=== PATIENT | female | born 1990 | race Caucasian/White ===

== ENCOUNTER 2017-01-06 14:57 | Emergency (ER) | payer OTHER ==
--- NOTE | 2017-01-06 15:32 | EDPHY ---
H & P Time Seen by Provider: 01/06/17 15:06 HPI/ROS: Chief complaint. Vomiting HPI. 26-year-old female had an IUD placed 2 weeks ago. She has had some low abdominal cramping since. She notes strong urine smell. Slight pinkish fluid seems to come from her vagina only with urination. She was in [place] for spring and return 2 days ago. Vomiting began the last 3 days of her trip. She has some periumbilical burning type pain for the last 2 days. No diarrhea. Last bowel movement was 2-3 days ago. No fever. ROS Constitutional. no fever/chills, no weakness Eyes. no problems with vision ENT. no sore throat, no nasal drainage Cardiovascular. no chest pain Respiratory. no shortness of breath, no cough Abdominal. Abdominal pain with nausea and vomiting . no problems urinating MS. no calf pain/swelling, no neck/back pain, no joint pain Skin. no rash Lymph. no swollen glands Neuro. no headache, no dizziness, no difficulty walking or with speech Past Medical/Surgical History: Healthy Social History: Single, nonsmoker, no alcohol Smoking Status: Never smoked Physical Exam: General Appearance: Alert well-developed female mild distress vital signs are stable Eyes: Pupils equal and round no pallor or injection. ENT, Mouth: Mucous membranes are moist. Respiratory: There are no retractions, lungs are clear to auscultation. Cardiovascular: Regular rate and rhythm. Gastrointestinal: Abdomen is soft and nontender, no masses, bowel sounds normal. No tenderness with palpation Neurological: Awake and alert, sensory and motor exams grossly normal. Skin: Warm and dry, no rashes. Musculoskeletal: Neck is supple nontender. Extremities symmetrical, full range of motion. Psychiatric: Patient is oriented X 3, there is no agitation. Constitutional: Initial Vital Signs Temperature (C) 36.6 C 01/06/17 15:01 Heart Rate 69 01/06/17 15:01 Respiratory Rate 16 01/06/17 15:01 Blood Pressure 99/50 L 01/06/17 15:01 O2 Sat (%) 97 01/06/17 15:01 O2 Delivery Mode Room Air Allergies/Adverse Reactions: No Known Allergies Allergy (Unverified 01/06/17 15:03) Home Medications: Medication Instructions Recorded Cephalexin [Keflex (*)] 500 mg PO TID #21 cap 01/06/17 Ondansetron Odt [Zofran Odt] 4 mg PO Q4PRN PRN #4 tab 01/06/17 Medical Decision Making - Diagnostics Imaging: Ultrasound reviewed by me and discussed with Dr. Perdomo shows an intrauterine measuring 6 weeks 2 days gestation. The gestational sac is immediately adjacent to the IUD. Procedures: IV normal saline with 1 L ED Course/Re-evaluation: Re-evaluation 6:00 p.m.. Patient and I discussed ultrasound findings, treatment plan as well as lab work evaluation and that she has a urinary tract infection. We discussed criteria for return importance of follow-up and further evaluation she expresses understanding and agreement I consulted and discussed the case with who recommends no attempts to remove the IUD as it is immediately adjacent to the gestational sac. They will remove it in the office using ultrasound Differential Diagnosis: I considered ectopic . with IUD. She also has urinary tract infection. I considered electrolyte abnormalities as well - Data Points Laboratory Results: Laboratory Results 01/06/17 15:15 01/06/17 15:15 01/06/17 01/06/17 01/06/17 15:55 15:52 15:40 WBC RBC Hgb Hct MCV MCH MCHC RDW Plt Count MPV Neut % (Auto) Lymph % (Auto) [place] % (Auto) Eos % (Auto) Baso % (Auto) Nucleat RBC Rel Count Absolute Neuts (auto) Absolute Lymphs (auto) Absolute Monos (auto) Absolute Eos (auto) Absolute Basos (auto) Absolute Nucleated RBC Immature Gran % Immature Gran # Sodium Potassium Chloride Carbon Dioxide Anion Gap BUN Creatinine Estimated GFR Glucose Calcium Lipase Beta HCG, Qual Beta HCG, Quant 01898.00 mIU/mL H mIU/mL (0-4.83) Urine Color YELLOW Urine Appearance HAZY Urine pH 5.0 (5.0-7.5) Ur Specific [place] 1.021 (1.002-1.030) Urine Protein NEGATIVE (NEGATIVE) Urine Ketones 2+ H (NEGATIVE) Urine Blood NEGATIVE (NEGATIVE) Urine Nitrate POSITIVE H (NEGATIVE) Urine Bilirubin NEGATIVE (NEGATIVE) Urine Urobilinogen NEGATIVE EU EU (0.2-1.0) Ur Leukocyte Esterase NEGATIVE (NEGATIVE) Urine RBC 1-3 /hpf /hpf (0-3) Urine WBC 10-15 /hpf H /hpf (0-3) Ur Epithelial Cells TRACE /lpf /lpf (NONE-1+) Urine Bacteria 1+ /hpf H /hpf (NONE SEEN) Ur Culture Indicated? INDICATED H (NI) Urine Glucose NEGATIVE (NEGATIVE) Patient ABO/Rh Pending 01/06/17 01/06/17 01/06/17 15:15 15:15 15:15 WBC 6.86 10^3/uL 10^3/uL (3.80-9.50) RBC 3.98 10^6/uL L 10^6/uL (4.18-5.33) Hgb 11.9 g/dL L g/dL (12.6-16.3) Hct 35.4 % L % (38.0-47.0) MCV 88.9 fL fL (81.5-99.8) MCH 29.9 pg pg (27.9-34.1) MCHC 33.6 g/dL g/dL (32.4-36.7) RDW 12.7 % % (11.5-15.2) Plt Count 342 10^3/uL 10^3/uL (150-400) MPV 9.8 fL fL (8.7-11.7) Neut % (Auto) 59.9 % % (39.3-74.2) Lymph % (Auto) 34.1 % % (15.0-45.0) [place] % (Auto) 4.8 % % (4.5-13.0) Eos % (Auto) 0.3 % L % (0.6-7.6) Baso % (Auto) 0.6 % % (0.3-1.7) Nucleat RBC Rel Count 0.0 % % (0.0-0.2) Absolute Neuts (auto) 4.11 10^3/uL 10^3/uL (1.70-6.50) Absolute Lymphs (auto) 2.34 10^3/uL 10^3/uL (1.00-3.00) Absolute Monos (auto) 0.33 10^3/uL 10^3/uL (0.30-0.80) Absolute Eos (auto) 0.02 10^3/uL L 10^3/uL (0.03-0.40) Absolute Basos (auto) 0.04 10^3/uL 10^3/uL (0.02-0.10) Absolute Nucleated RBC 0.00 10^3/uL 10^3/uL (0-0.01) Immature Gran % 0.3 % % (0.0-1.1) Immature Gran # 0.02 10^3/uL 10^3/uL (0.00-0.10) Sodium 132 mEq/L L mEq/L (134-144) Potassium 4.7 mEq/L mEq/L (3.5-5.2) Chloride 99 mEq/L mEq/L (97-110) Carbon Dioxide 18 mEq/l L mEq/l (22-31) Anion Gap 15 mEq/L mEq/L (8-16) BUN 10 mg/dL mg/dL (7-23) Creatinine 0.5 mg/dL L mg/dL (0.6-1.0) Estimated GFR > 60 Glucose 78 mg/dL mg/dL (70-100) Calcium 10.1 mg/dL mg/dL (8.5-10.4) Lipase 58.0 IU/L IU/L (23-300) Beta HCG, Qual POSITIVE Beta HCG, Quant Urine Color Urine Appearance Urine pH Ur Specific [place] Urine Protein Urine Ketones Urine Blood Urine Nitrate Urine Bilirubin Urine Urobilinogen Ur Leukocyte Esterase Urine RBC Urine WBC Ur Epithelial Cells Urine Bacteria Ur Culture Indicated? Urine Glucose Patient ABO/Rh Departure - Departure Disposition: Home, Routine, Self-Care Clinical Impression: First trimester Urinary tract infection Qualifiers: Urinary tract infection type: acute cystitis Hematuria presence: without hematuria Qualified Code(s): N30.00 - Acute cystitis without hematuria Condition: Good Instructions: Urinary Tract Infection in Women (ED) Additional Instructions: Drink plenty of fluids and stay hydrated. Zofran as needed for nausea. Cephalexin is antibiotic. Return for worsening pain, fever, vaginal bleeding. Call to arrange follow-up and further evaluation of the your IUD and Referrals: NONE *PRIMARY CARE P,. [Primary Care Provider] - As per Instructions Jossie Davila DO [Doctor of Osteopathy] - 2-3 days, call for appt. Prescriptions: Cephalexin [Keflex (*)] 500 mg PO TID #21 cap Ondansetron Odt [Zofran Odt] 4 mg PO Q4PRN PRN #4 tab PRN Reason: Nausea/Vomiting, Use 1st
[2017-01-06 15:39] LABS: % IMMATURE GRANULYOCYTES 0.3 % (0.0-1.1); ABSOLUTE IMMATURE GRANULOCYTES 0.02 10^3/uL (0.00-0.10); ADD DIFF? NO; ADD MORPH? NO; ADD SCAN? NO; ATYPICAL LYMPHOCYTE FLAG 10 (0-99); FRAGMENT RBC FLAG 0 (0-99); HEMATOCRIT 35.4 % (38.0-47.0); HEMOGLOBIN 11.9 g/dL (12.6-16.3); LEFT SHIFT FLG 0 (0-99); LIPEMIA HEMOLYSIS FLAG 80 (0-99); MEAN CELL HEMOGLOBIN 29.9 pg (27.9-34.1); MEAN CELL HEMOGLOBIN CONCENTR. 33.6 g/dL (32.4-36.7); MEAN CELL VOLUME 88.9 fL (81.5-99.8); MEAN PLATELET VOLUME 9.8 fL (8.7-11.7); PLATELET CLUMPS FLAG 10 (0-99); PLATELET COUNT 342 10^3/uL (150-400); RED BLOOD CELL COUNT 3.98 10^6/uL (4.18-5.33); RED CELL DISTRIBUTION WIDTH 12.7 % (11.5-15.2)
[2017-01-06 16:03] LABS: ANION GAP 15 mEq/L (8-16); CALCIUM 10.1 mg/dL (8.5-10.4); CARBON DIOXIDE 18 mEq/l (22-31); CHLORIDE 99 mEq/L (97-110); CREATININE 0.5 mg/dL (0.6-1.0); GLOMERULAR FILTRATION RATE > 60; GLUCOSE 78 mg/dL (70-100); POTASSIUM 4.7 mEq/L (3.5-5.2); SODIUM 132 mEq/L (134-144)
[2017-01-06 16:12] LABS: COLOR YELLOW; LEUKOCYTE ESTERASE,URINE NEGATIVE (NEGATIVE); NITRITE,URINE POSITIVE (NEGATIVE)
[2017-01-06 16:20] LABS: BACTERIA 1+ /hpf (NONE SEEN)
[2017-01-06 18:14] VITALS: O2SAT 97
[2017-01-06 18:26] VITALS: BP 97/73; PULSE 70; RESP 14; TEMP 99.1
== END 2017-01-06 18:25 | disposition home or self-care (01) ==
DX: O23.11 Infections of bladder in pregnancy, first trimester (principal); B96.29 Other Escherichia coli [E. coli] as the cause of diseases classified elsewhere; Z3A.01 Less than 8 weeks gestation of pregnancy

== ENCOUNTER 2017-01-11 10:23 | Emergency (ER) | payer OTHER ==
[2017-01-11 10:28] VITALS: RESP 16; TEMP 98.2
--- NOTE | 2017-01-11 10:32 | EDPHY ---
H & P Stated Complaint: nausea continues after uti, and infected iud removed t-4,on flagyl Time Seen by Provider: 01/11/17 10:32 - Personal History LMP (Females 10-55): Unknown Current Tetanus/Diphtheria Vaccine: Unsure Current Tetanus Diphtheria and Acellular Pertussis (TDAP): Unsure - Medical/Surgical History Hx Asthma: No Hx Chronic Respiratory Disease: No Hx Diabetes: No Hx Cardiac Disease: No Hx Renal Disease: No Hx Cirrhosis: No Hx Alcoholism: No Hx HIV/AIDS: No Hx Splenectomy or Spleen Trauma: No Other PMH: Denies - Social History Smoking Status: Never smoked Constitutional: Initial Vital Signs Temperature (C) 36.8 C 01/11/17 10:25 Heart Rate 85 01/11/17 10:25 Respiratory Rate 16 01/11/17 10:25 Blood Pressure 104/61 01/11/17 10:25 O2 Sat (%) 98 01/11/17 10:25 O2 Delivery Mode Room Air Allergies/Adverse Reactions: No Known Allergies Allergy (Unverified 01/06/17 15:03) Home Medications: Medication Instructions Recorded Cephalexin [Keflex (*)] 500 mg PO TID #21 cap 01/06/17 Metronidazole 01/11/17 Medical Decision Making ED Course/Re-evaluation: CHIEF COMPLAINT: Vaginal bleeding. HISTORY OF PRESENT ILLNESS: The patient is a 26-year-old female who presents after episodes of vaginal bleeding Friday and . This patient was in the emergency department last week for nausea and vomiting and found out she was 7 weeks . However, she had an IUD placed at some point in the early . She had this IUD removed on Friday. She bled Friday and . She denies fever, abdominal pain, other vaginal discharge. REVIEW OF SYSTEMS: A 10 point review of systems was performed and is negative with the exception of the elements mentioned in the history of present illness. PHYSICAL EXAM: HR, BP, O2 Sat, RR. Temp noted General Appearance: Alert, well hydrated, appropriate, and non-toxic appearing. Head: Atraumatic without scalp tenderness or obvious injury Eyes: Pupils equal, round, reactive to light and accommodation, EOMI, no trauma , no injection. Ears: Clear bilaterally, no perforation, normal landmarks Nose: Atraumatic, no rhinorrhea, clear. Throat: There is no erythema or exudates, no lesions, normal tonsils, mucus membranes moist. Neck: Supple, 2+ carotid upstroke, nontender, no lymphadenopathy. Respiratory: No retractions, no distress, no wheezes, and no accessory muscle use. Lungs are clear to auscultation bilaterally. Cardiovascular: Regular rate and rhythm, no murmurs, rubs, or gallops. Bilateral carotid, radial, dorsalis pedis, and posterior tibial pulses intact. Good capillary refill all extremities. Gastrointestinal: Abdomen is soft, nontender, non-distended, no masses, no rebound, no guarding, no peritoneal signs. Musculoskeletal: Normal active ROM of all extremities, atraumatic. Neurological: Alert, appropriate, and interactive. The patient has normal DTRs and non-focal cranial nerves, motor, sensory, and cerebellar exam. Skin: No rashes, good turgor, no nodules on palpation. Past medical history: Denies. Past surgical history: Denies. Family history: N/A. Social history: Here alone. DIAGNOSTICS/PROCEDURES/CRITICAL CARE TIME: I independently reviewed the patient's imaging studies on the PACS system. See Imaging section for radiologist reports. DIFFERENTIAL DIAGNOSIS: The differential diagnosis for the patient's vaginal bleeding included but was not limited to ectopic , menses, miscarriage, and dysfunctional uterine bleeding. MEDICAL DECISION MAKING: This is a 26-year-old female seen in the ED last week for nausea vomiting. She found out she was 7 weeks but had an IUD placed sometime during the . This IUD was removed 5 days ago. She had 2 days of bleeding after the removal. She has not had bleeding since. She denies vaginal discharge, abdominal pain, lightheadedness, or other complaints. Blood work and obstetrics ultrasound ordered. 1208: Ultrasound results conveyed to me by Dr. Mata, radiology. He reports that the baby is viable and has grown. There is slight subchorionic hemorrhage similar to last time. I have discussed these results with her. She is comfortable being discharged. - Data Points Laboratory Results: Laboratory Results 01/11/17 10:50 01/11/17 10:50 01/11/17 01/11/17 01/11/17 11:07 10:50 10:50 WBC 6.72 10^3/uL 10^3/uL (3.80-9.50) RBC 4.12 10^6/uL L 10^6/uL (4.18-5.33) Hgb 11.9 g/dL L g/dL (12.6-16.3) Hct 35.4 % L % (38.0-47.0) MCV 85.9 fL fL (81.5-99.8) MCH 28.9 pg pg (27.9-34.1) MCHC 33.6 g/dL g/dL (32.4-36.7) RDW 12.6 % % (11.5-15.2) Plt Count 333 10^3/uL 10^3/uL (150-400) MPV 9.6 fL fL (8.7-11.7) Neut % (Auto) 67.4 % % (39.3-74.2) Lymph % (Auto) 26.3 % % (15.0-45.0) [place] % (Auto) 5.2 % % (4.5-13.0) Eos % (Auto) 0.1 % L % (0.6-7.6) Baso % (Auto) 0.7 % % (0.3-1.7) Nucleat RBC Rel Count 0.0 % % (0.0-0.2) Absolute Neuts (auto) 4.52 10^3/uL 10^3/uL (1.70-6.50) Absolute Lymphs (auto) 1.77 10^3/uL 10^3/uL (1.00-3.00) Absolute Monos (auto) 0.35 10^3/uL 10^3/uL (0.30-0.80) Absolute Eos (auto) 0.01 10^3/uL L 10^3/uL (0.03-0.40) Absolute Basos (auto) 0.05 10^3/uL 10^3/uL (0.02-0.10) Absolute Nucleated RBC 0.00 10^3/uL 10^3/uL (0-0.01) Immature Gran % 0.3 % % (0.0-1.1) Immature Gran # 0.02 10^3/uL 10^3/uL (0.00-0.10) Sodium 137 mEq/L mEq/L (134-144) Potassium 3.6 mEq/L mEq/L (3.5-5.2) Chloride 102 mEq/L mEq/L (97-110) Carbon Dioxide 20 mEq/l L mEq/l (22-31) Anion Gap 15 mEq/L mEq/L (8-16) BUN 10 mg/dL mg/dL (7-23) Creatinine 0.6 mg/dL mg/dL (0.6-1.0) Estimated GFR > 60 Glucose 85 mg/dL mg/dL (70-100) Calcium 10.0 mg/dL mg/dL (8.5-10.4) Beta HCG, Quant 38465.00 mIU/mL H mIU/mL (0-4.83) Patient ABO/Rh O POSITIVE Medications Given: Discontinued Medications Sodium Chloride (Ns) 1,000 mls @ 0 mls/hr IV ONCE ONE PRN Reason: Wide Open Stop: 01/11/17 10:45 Last Admin: 01/11/17 10:56 Dose: 1,000 mls Ondansetron HCl (Zofran) 4 mg IVP EDNOW ONE Stop: 01/11/17 10:45 Last Admin: 01/11/17 10:56 Dose: 4 mg Departure - Departure Disposition: Home, Routine, Self-Care Clinical Impression: Threatened Condition: Good Instructions: Threatened Miscarriage (ED) Additional Instructions: Follow up with your DETAIL MANAGER next week for reevaluation. You have been given the telephone number of the on-call DETAIL MANAGER if you need one. Return for any serious worsening of condition. Referrals: Shantel Gupta MD [Medical Doctor] - As per Instructions Report Scribed for: Fan Aquino Report Scribed by: Edwardo Valles Date of Report: 01/11/17 Time of Report: 10:45
[2017-01-11] MEDS ORDERED: NS 1,000 ML IV ONE (10:44)
[2017-01-11] MEDS ORDERED: ONDANSETRON 4 MG/2 ML VIAL IVP ONE (10:44)
[2017-01-11 11:03] LABS: % IMMATURE GRANULYOCYTES 0.3 % (0.0-1.1); ABSOLUTE IMMATURE GRANULOCYTES 0.02 10^3/uL (0.00-0.10); ADD DIFF? NO; ADD MORPH? NO; ADD SCAN? NO; ATYPICAL LYMPHOCYTE FLAG 30 (0-99); FRAGMENT RBC FLAG 0 (0-99); HEMATOCRIT 35.4 % (38.0-47.0); HEMOGLOBIN 11.9 g/dL (12.6-16.3); LEFT SHIFT FLG 0 (0-99); LIPEMIA HEMOLYSIS FLAG 80 (0-99); MEAN CELL HEMOGLOBIN 28.9 pg (27.9-34.1); MEAN CELL HEMOGLOBIN CONCENTR. 33.6 g/dL (32.4-36.7); MEAN CELL VOLUME 85.9 fL (81.5-99.8); MEAN PLATELET VOLUME 9.6 fL (8.7-11.7); PLATELET CLUMPS FLAG 0 (0-99); PLATELET COUNT 333 10^3/uL (150-400); RED BLOOD CELL COUNT 4.12 10^6/uL (4.18-5.33); RED CELL DISTRIBUTION WIDTH 12.6 % (11.5-15.2)
[2017-01-11 11:13] LABS: ANION GAP 15 mEq/L (8-16); CARBON DIOXIDE 20 mEq/l (22-31); CHLORIDE 102 mEq/L (97-110); CREATININE 0.6 mg/dL (0.6-1.0); GLOMERULAR FILTRATION RATE > 60; GLUCOSE 85 mg/dL (70-100); POTASSIUM 3.6 mEq/L (3.5-5.2); SODIUM 137 mEq/L (134-144)
[2017-01-11 12:27] VITALS: BP 103/52; PULSE 71; O2SAT 97
== END 2017-01-11 12:26 | disposition home or self-care (01) ==
DX: O20.0 Threatened abortion (principal); Z3A.01 Less than 8 weeks gestation of pregnancy
CPT/HCPCS: 96374; J2405